=== PATIENT | female | born 1970 | race Two or more races ===

== ENCOUNTER 2024-10-10 09:29 | Outpatient (AMB) | payer MEDICAID, SELFPAY ==
[2024-10-10 09:58] VITALS: BP 116/85; PULSE 90; RESP 18; TEMP 36.4; O2SAT 98; BMI 35.9
--- NOTE | 2024-10-10 09:58 | ORTHONT_ITS ---
Vital signs 10/10/24 09:58 Height 1.57 m Height Method Stated Weight 89.131 kg Weight Measurement Method Standing Scale BMI 35.9 BP 116/85 H Blood Pressure Source Automatic Cuff Blood Pressure Location Left Upper Arm Position Sitting Respiration 18 Pulse 90 Pulse Source Monitor Temp 97.6 F Temp Source Temporal Artery Scan Pulse Oximetry (%) 98 Oxygen Delivery Method Room Air Med/Allergies Allergies & Medications Allergies No Known Allergies Allergy (Verified 10/10/24 09:59) Medication Reconciliation allopurinol 100 mg tablet 100 mg PO QDAY 10/10/24 [History Confirmed 10/10/24] atorvastatin 10 mg tablet 10 mg PO QDAY 10/10/24 [History Confirmed 10/10/24] mirabegron 50 mg tablet,extended release 24 hr 50 mg PO QDAY 10/10/24 [History Confirmed 10/10/24] Exam Exam Patient is in no acute distress and is cooperative with the examination today. Breathing is nonlabored. Patient has a normal mood and affect. Bilateral extremities were evaluated and demonstrates sensation intact to light touch. Palpable pedal pulses are present. No significant edema is present. Bilateral hips were examined. The patient has no pain with log roll of the hips. Internal rotation to 30 degrees and external rotation to 30 degrees is painless. Negative FADIR. Right knee was examined today. The right knee is in reasonable alignment. Range of motion from 0-120 degrees. Knee is stable to varus and valgus as well as AP translation with <5mm. Patient has a negative McMurrays. There is no pain with patellofemoral compression and no crepitus noted. The knee is nontender to palpation. Left knee was examined today. The left knee is in varus alignment. Range of motion from 0-115 degrees. Knee is stable to varus and valgus as well as AP translation with <5mm. Patient has a negative McMurrays. There is no pain with patellofemoral compression and no crepitus noted. The knee is tender to palpation medially. Assessment and Plan Problem List (1) Arthritis of left knee: Status: Acute Plan: Patient is a pleasant 54-year-old female with left knee pain and left knee arthritis. The pain is medial. We will order weightbearing x-rays to better evaluate it. We will also get authorizations for injections at the next visit. She has been taking anti-inflammatories and reports it helps. We will see her back after her x-rays are done [place] Intake Visit Data Collection New Patient or Established: New Patient (never been to [facility]) Reason for Visit:: OA LEFT KNEE Seen by Clinical Staff ONLY (RN/NICHOLAS): No Wire Stitcher Required: Yes PCP or OBGYN visit in last 3 months: Yes Hx Now: No Do You Feel Safe at Home: Yes Authorities Contacted: N/A Questionairres Past Medical History Past Medical History Have you ever been diagnosed with any of the following: Cardiology Problems Hypercholesterolemia: Yes Hypertension: Yes Subjective Visit Visit for: new patient and knee Immunization / Flu Flu Vaccine in the Last 12 Months: Yes Flu Vaccine Exclusion Criteria: Already Received History of Present Illness Chief complaint: left knee pain Date of injury / onset of symptoms: 11/2023 Patient is a pleasant 54-year-old female with left knee pain. This been ongoing for 7 months. She tried has tried meloxicam in the past. She has not had any injections or physical therapy. She has not had x-rays recently and was lying down the last x-rays. She reports that the pain is tolerable at rest and it is primarily activity related. 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
--- NOTE | 2024-10-10 10:01 | XR_ITS ---
Examination: Bilateral AP knees standing single view PA lateral axial right left knee 3 views TECHNIQUE: Bilateral AP knees standing single view Left knee PA standing flexion, standing lateral, axial 3 views total 4 views Date and time: October 10, 2024 1023 hours INDICATIONS: Left knee pain with locking beginning 10 months ago. FINDINGS: Moderate osteopenia. Mild narrowing medial lateral joint spaces right knee Moderate to advanced narrowing medial joint space left knee Mild to moderate osteoarthritis left patellofemoral joint IMPRESSION: Moderate to advanced narrowing medial joint space left knee
== END 2024-10-10 10:10 | disposition home or self-care (01) ==
LOC: HODSRG 09:29
PROVIDERS: PCP Family Medicine; Referring Provider Family Medicine; Supervising Provider Orthopaedic Surgery Adult Reconstructive Orthopaedic Surgery; Visit Provider Orthopaedic Surgery Adult Reconstructive Orthopaedic Surgery
DX: M17.12 Unilateral primary osteoarthritis, left knee (principal); M25.562 Pain in left knee
CPT/HCPCS: 73564; 99204; G0463

== ENCOUNTER 2024-12-17 15:14 | Outpatient (AMB) | payer MEDICAID, SELFPAY ==
--- NOTE | 2024-12-17 15:24 | PD.ORTHCLVIS ---
Vital signs 12/17/24 15:33 Height 1.57 m Height Method Measured Weight 89.018 kg Weight Measurement Method Standing Scale BMI 36.1 BP 126/87 H Blood Pressure Source Automatic Cuff Blood Pressure Location Left Upper Arm Position Sitting Respiration 19 Pulse 74 Pulse Source Monitor Temp 97.8 F Temp Source Temporal Artery Scan Pulse Oximetry (%) 95 Oxygen Delivery Method Room Air Med/Allergies Allergies & Medications Allergies No Known Allergies Allergy (Verified 12/17/24 15:34) Medication Reconciliation allopurinol 100 mg tablet 100 mg PO QDAY 10/10/24 [History Confirmed 12/17/24] atorvastatin 10 mg tablet 10 mg PO QDAY 10/10/24 [History Confirmed 12/17/24] mirabegron 50 mg tablet,extended release 24 hr 50 mg PO QDAY 10/10/24 [History Confirmed 12/17/24] Exam Exam Patient is in no acute distress and is cooperative with the examination today. Breathing is nonlabored. Patient has a normal mood and affect. Bilateral extremities were evaluated and demonstrates sensation intact to light touch. Palpable pedal pulses are present. No significant edema is present. Bilateral hips were examined. The patient has no pain with log roll of the hips. Internal rotation to 30 degrees and external rotation to 30 degrees is painless. Negative FADIR. Right knee was examined today. The right knee is in reasonable alignment. Range of motion from 0-120 degrees. Knee is stable to varus and valgus as well as AP translation with <5mm. Patient has a negative McMurrays. There is no pain with patellofemoral compression and no crepitus noted. The knee is nontender to palpation. Left knee was examined today. The left knee is in varus alignment. Range of motion from 0-115 degrees. Knee is stable to varus and valgus as well as AP translation with <5mm. Patient has a negative McMurrays. There is no pain with patellofemoral compression and no crepitus noted. The knee is tender to palpation medially. Left knee x-rays demonstrates moderate to severe arthritis of the medial compartment on the left knee Assessment and Plan Problem List (1) Arthritis of left knee: Status: Acute Plan: Patient is a pleasant 54-year-old female with left knee pain and left knee arthritis. The pain is medial. Patient has severe arthritis of the left knee Recommend knee cortisone injection as patient would like to proceed with conservative treatment at this time. The risks and benefits of the procedure were reviewed with the patient and patient gave verbal consent to continue with the procedure. Procedure: performed by Dr. Raya Using sterile technique the left knee was thoroughly prepped with alcohol, and approximately 1 cc of Depo-Medrol 80mg/mL and 4 cc of 0.2% ropivacaine was injected without resistance into the medial tibial femoral joint space. The patient tolerated the procedure. Office Procedures GNS Level of Care Nursing/Assessment Patient Status: Established Patient Nursing Assessment/Reassesment: Medication Reconciliation, Update PMH in EMR and Vital Signs Coordination of Care: Complex Care and Chronic Disease 1-5, Education Complex Pt/Fam, Consent,records obtained, informed consent, Results/Orders obtained and Staff clarify orders Special Needs: Language special needs Established Patient Charge Established Patient Point Assignment: 95 Established Patient Point Charge: EP Level 3 (80-115) Surgical Proc/IM SQ injection Minor Surgical Procedure: Yes (KNEE INJECTION ) Medication Given Medication Given Medication Given: Yes Documented Dose Given: 1 Route: Infiitration Medication Given Medication Given Medication Given: Yes Documented Dose Given: 4 Route: Infiitration Office Meds methylprednisolone acetate 80 mg/mL suspension for injection Performing Provider: Marcus Raya MD Performing Location: [facility] Administered by: Marcus Raya MD on 12/18/24 14:19 Dose Route Admin Location Dispensed Lot Number Expiration Date Package [facility] [employer] 80 mg intra-articular KNEE 1 mL [id number] 09/16/26 [address]-1 [id number] [employer] ropivacaine (PF) 2 mg/mL (0.2 %) injection solution Performing Provider: Marcus Raya MD Performing Location: [facility] Administered by: Marcus Raya MD on 12/18/24 14:19 Dose Route Admin Location Dispensed Lot Number Expiration Date Package [facility] NDC Hand [employer]icer [employer] Winder 20 mL Infiltration KNEE 20 mL [id number] 04/19/27 76323-751-62 [id number] [facility] Intake Visit Data Collection New Patient or Established: Established Patient (seen at [facility] within 3 years) Reason for Visit:: KNEE INJECTION Seen by Clinical Staff ONLY (RN/MA): No Wireline Field Operator Required: Yes PCP or OBGYN visit in last 3 months: Yes Hx Now: No Do You Feel Safe at Home: Yes Authorities Contacted: N/A Questionairres Past Medical History Past Medical History Have you ever been diagnosed with any of the following: Cardiology Problems Hypercholesterolemia: Yes Hypertension: Yes Subjective Visit Visit for: follow up visit and knee Immunization / Flu Flu Vaccine in the Last 12 Months: Yes Flu Vaccine Exclusion Criteria: Already Received History of Present Illness Chief complaint: left knee pain Date of injury / onset of symptoms: 11/2023 Patient is a pleasant 54-year-old female with left knee pain. This has been ongoing for 7 months. She tried has tried meloxicam in the past. She has not had any injections or physical therapy. She reports that the pain is tolerable at rest and it is primarily activity related. 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
[2024-12-17 15:33] VITALS: BP 126/87; PULSE 74; RESP 19; TEMP 36.6; O2SAT 95; BMI 36.1
== END 2024-12-17 15:42 | disposition home or self-care (01) ==
PROVIDERS: PCP Family Medicine; Referring Provider Family Medicine; Supervising Provider Orthopaedic Surgery Adult Reconstructive Orthopaedic Surgery; Visit Provider Orthopaedic Surgery Adult Reconstructive Orthopaedic Surgery
DX: M17.12 Unilateral primary osteoarthritis, left knee (principal); M25.562 Pain in left knee; I10 Essential (primary) hypertension; E78.00 Pure hypercholesterolemia, unspecified
CPT/HCPCS: 20610; 99213; J1010; J2795; G0463